=== PATIENT | male | born 1960 | race Caucasian/White ===

== ENCOUNTER 2017-03-02 11:59 | Inpatient (IN) | payer OTHER ==
[2017-03-02 12:25] VITALS: BMI 25.8
--- NOTE | 2017-03-02 14:01 | HP ---
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 JUST RELEASED FROM LONG TERM A MONTH AND HALF AGO AFTER 8 YEARS. Exam Limitations: No Limitations - Ebola screening Have you traveled outside of the country in the last 21 days: No Have you had contact with anyone from an Ebola affected area: No Have you been sick,other than usual withdrawal symptoms: No Do you have a fever: No - Review of Systems Constitutional: Chills, Loss of Appetite, Night Sweats, Changes in sleep, Unintentional Wgt. Loss EENT: reports: Cataracts (SX DONE ON BOTH EYES), Blurred Vision (WEARS GLASSES FOR READING), Dental Problems (UPPER PLATE) Respiratory: reports: No Symptoms reported Cardiac: reports: Lightheadedness GI: reports: Nausea, Poor Appetite, Poor Fluid Intake, Abdominal cramping : reports: Dysuria, Other (BPH) Musculoskeletal: reports: Back Pain, Joint Pain, Muscle Pain Integumentary: reports: Bruising (ON THIGH--"I BRUISE EASILY DUE TO LOW PLAT COUNT".) Neuro: reports: Headache, Numbness (HX NEUROPATHY), Tingling, Unsteady Gait, Dizziness Endocrine: reports: No Symptoms Reported Hematology: reports: Anemia Psychiatric: reports: Orientated x3, Anxious Other Systems: Reviewed and Negative Patient History - Patient Medical History Hx Anemia: Yes Hx Asthma: No Hx Chronic Obstructive Pulmonary Disease (COPD): No Hx Cardiac Disorders: No Hx Hypertension: Yes (ENALAPRIL 5 MG BID) Hx Hypercholesterolemia: No HX Cerebrovascular Accident: No Hx Seizures: No Hx Diabetes: No Hx Gastrointestinal Disorders: Yes (pepetic ulcer-PRILOSEC) Hx Liver Disease: Yes (LIVER CIRRHOSIS) Hx Genitourinary Disorders: No Hx Sexually Transmitted Disorders: No Hx Renal Disease (ESRD): No Hx Thyroid Disease: No Hx Human Immunodeficiency Virus (HIV): Yes (SINCE 1989) Hx Hepatitis C: Yes (TREATED WITH HARVONI X 6 MONTHS) Hx Depression: Yes Hx Suicide Attempt: No Hx Schizophrenia: No - Patient Surgical History Past Surgical History: Yes Hx Neurologic Surgery: No Hx Cataract Extraction: No Hx Cardiac Surgery: No Hx Lung Surgery: No Hx Breast Surgery: No Hx Breast Biopsy: No Hx Abdominal Surgery: No Hx Appendectomy: No Hx Genitourinary Surgery: No Hx Section: No Hx Orthopedic Surgery: Yes (left thigh in 1975) Other Surgical History: fx, left jaw in 2002/left orbit in 2009 Anesthesia Reaction: No - PPD History Previous Implant?: Yes (HX PPD+) Documented Results: Positive w/o proof Implanted On Prior R Admission?: No Results: CXR TBD PPD to be Administered?: No - Reproductive History Patient is a Female of Child Bearing Age (11 -55 yrs old): No (MALE) Patient : (N/A) - Smoking Cessation Smoking history: Current every day smoker Have you smoked in the past 12 months: Yes Aproximately how many cigarettes per day: 10 Hx Chewing Tobacco Use: No Initiated information on smoking cessation: Yes 'Breaking Loose' booklet given: 03/02/17 - Substance & Tx. History Hx Alcohol Use: No Hx Substance Use: Yes (XANAX) Substance Use Type: Tranquilizers (TOXICOLOGY (-)) Hx Substance Use Treatment: Yes (MMTP) - Substances Abused Xanax Route: Oral Frequency: 1-2 times per week Amount used: 2 mg. Age of first use: 56 Date of Last Use: 02/27/17 Family Disease History - Family Disease History Family Disease History: Heart Disease: Grandparent ([id number]; GM- CANCER), CA: Grandparent, Respiratory: Grandparent, Other: Father (-IN [place]), Mother (SUICIDE) Admission Physical Exam [facility] - Vital Signs Vital Signs: Vital Signs - 24 hr 03/02/17 12:23 Temperature 97.9 F Pulse Rate 74 Respiratory 18 Rate Blood Pressure 115/72 - Physical General Appearance: Yes: No Apparent Distress, Anxious HEENTM: Yes: EOMI, Normocephalic, ENID, Pharynx Normal Respiratory: Yes: Chest Non-Tender, Lungs Clear, Normal Breath Sounds, No Respiratory Distress Neck: Yes: Supple, Trachea in good position Breast: Yes: Breast Exam Deferred Cardiology: Yes: Regular Rhythm, Regular Rate, S1, S2 Abdominal: Yes: Normal Bowel Sounds, Non Tender, Soft Genitourinary: Yes: Other (N/A) Back: Yes: Within Normal Limits Musculoskeletal: Yes: full range of Motion, Gait Steady Extremities: Yes: Normal Range of Motion, Non-Tender Neurological: Yes: property valuer II-XII NML intact, Fully Oriented, Alert, Motor Strength 5/5 Integumentary: Yes: Dry, Warm Lymphatic: Yes: Within Normal Limits - Diagnostic (1) Methadone maintenance therapy patient Current Visit: Yes Status: Chronic (2) HIV (human immunodeficiency virus infection) Current Visit: Yes Status: Chronic (3) History of cirrhosis of liver Current Visit: Yes Status: Chronic (4) History of hepatitis C Current Visit: Yes Status: Chronic Cleared for Admission [facility] - Detox or Rehab Claeared for Rehab Admission: Yes [facility] Breath Alcohol Content Breath Alcohol Content: 0 Urine Drug Screen - Results Drug Screen Negative: No Urine Drug Screen Results: MTD-Methadone
[2017-03-02] MEDS ORDERED: hydrOXYzine PAMOATE 25 MG CAPSULE (FP) PO PRN ×2 (14:39→14:48)
[2017-03-02] MEDS ORDERED: guaiFENesin/D-METHORPHAN HB 10 ML UNIT-DOSE CUPS PO PRN (14:39)
[2017-03-02] MEDS ORDERED: ACETAMINOPHEN 325 MG TABLET (FP) PO PRN (14:39)
[2017-03-02] MEDS ORDERED: MAGNESIUM HYDROX 2400MG/30ML ORAL SUSPENSION 30 ML CUP PO PRN (14:39)
[2017-03-02] MEDS ORDERED: LOPERAMIDE HCL 2 MG CAPSULE PO PRN (14:39)
[2017-03-02] MEDS ORDERED: MAGNESIUM CITRATE 300 ML BOTTLE PO PRN (14:39)
[2017-03-02] MEDS ORDERED: MENTHOL/PHENOL 1 EACH UD MM PRN (14:39)
[2017-03-02] MEDS ORDERED: P-EPHED 60MG/TRIPROLIDI 2.5MG TABLET PO PRN (14:39)
[2017-03-02] MEDS ORDERED: IBUPROFEN 400 MG TABLET (FP) PO PRN (14:39)
[2017-03-02] MEDS ORDERED: MAG HYDROX/AL HYDROX/SIMETH 30 ML UNIT-DOSE CUP PO PRN (14:39)
[2017-03-02] MEDS ORDERED: NICOTINE POLACRILEX 2 MG GUM BC PRN (14:39)
[2017-03-02 18:10] LABS: MCH 32.2 pg (25.7-33.7); MEAN CELL VOLUME 92.2 fl (80-96); RDW 14.2 % (11.9-15.9); WHITE BLOOD COUNT 4.3 K/mm3 (4.0-10.0)
[2017-03-02 18:22] LABS: ALBUMIN 4.3 g/dl (3.4-5.0); ANION GAP 9 (8-16); CALCIUM 8.8 mg/dL (8.5-10.1); CO2 29 mmol/L (21-32); GLUCOSE,RANDOM 90 mg/dL (74-106); SGOT/AST 21 U/L (15-37); SGPT/ALT 24 U/L (12-78)
[2017-03-02 18:24] LABS: ALK PHOS 74 U/L (45-117); TOT PROT 7.7 g/dl (6.4-8.2)
[2017-03-02 20:01] LABS: MEAN PLT VOLUME 10.9 fl (7.5-11.1); PLATELET COMMENT2 NO CLUMPING NOTED; PLATELET COMMENT3 NO CLOTTING DETECTED; PLATELET COUNT 62 K/MM3 (134-434); PLATELET ESTIMATE MOD DECREASED (NORMAL)
[2017-03-02] MEDS: THIAMINE HCL 100 MG TABLET (FP) PO SCH (21:55)
[2017-03-02] MEDS: ENALAPRIL MALEATE 5 MG TABLET (FP) PO SCH (21:56)
[2017-03-02] MEDS: GABAPENTIN 300 MG CAPSULE (FP) PO SCH (21:57)
[2017-03-02] MEDS: MIRTAZAPINE 15 MG TABLET (FP) PO SCH (21:57)
[2017-03-02] MEDS ORDERED: MIRTAZAPINE 15 MG TABLET (FP) PO SCH (22:00)
[2017-03-03] MEDS ORDERED: METHADONE HCL 40 MG DISPERSABLE TABLET ONE (04:19)
[2017-03-03] MEDS ORDERED: METHADONE HCL 10 MG TABLET ONE (04:19)
[2017-03-03] MEDS: METHADONE 40 MG, METHADONE 20 MG PO SCH (06:08)
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
[2017-03-03 09:36] LABS: URINE APPEARANCE CLEAR; URINE BILIRUBIN NEGATIVE (NEGATIVE); URINE BLOOD NEGATIVE (NEGATIVE); URINE COLOR LTYELLOW; URINE GLUCOSE (UA) NEGATIVE (NEGATIVE); URINE KETONE NEGATIVE (NEGATIVE); URINE LEUK ESTERASE NEGATIVE (NEGATIVE); URINE NITRITE NEGATIVE (NEGATIVE); URINE PROTEIN NEGATIVE (NEGATIVE); URINE UROBILINOGEN NEGATIVE mg/dL (0.2-1.0)
--- NOTE | 2017-03-03 09:37 | EKG ---
Test Reason : Blood Pressure : / mmHG Vent. Rate : 067 BPM Atrial Rate : 067 BPM P-R Int : 120 ms QRS Dur : 094 ms QT Int : 414 ms P-R-T Axes : 016 024 018 degrees QTc Int : 437 ms NORMAL SINUS RHYTHM NORMAL ECG NO PREVIOUS ECGS AVAILABLE Confirmed by CARMITA MADDOX, WON ([id number]) on 03/03/2017 9:37:34 AM Referred By: Confirmed By:WON VIZCARRA MD
[2017-03-03] MEDS ORDERED: NICOTINE 14 MG/24 HOURS TOPICAL PATCH TD SCH ×2 (10:00→13:35)
[2017-03-03] MEDS ORDERED: METHADONE HCL 10 MG TABLET PO SCH (10:00)
[2017-03-03] MEDS: ENALAPRIL MALEATE 5 MG TABLET (FP) PO SCH ×2 (10:03→21:05)
[2017-03-03] MEDS: GABAPENTIN 300 MG CAPSULE (FP) PO SCH (10:03)
[2017-03-03] MEDS: PRENATAL VITAMINS W/ FOLIC ACID TABLET (FP) PO SCH (10:03)
[2017-03-03] MEDS: PATIENT'S OWN MEDICATION (NON-FORMULARY) (Omeprazole 20 MG) PO SCH ×2 (10:04→10:43)
[2017-03-03] MEDS ORDERED: NICOTINE POLACRILEX 2 MG GUM BC PRN (13:36)
[2017-03-03] MEDS ORDERED: NICOTINE POLACRILEX 2 MG GUM BUC PRN (13:40)
[2017-03-03] MEDS: TOLNAFTATE 1% CREAM 15 GM TUBE TP SCH ×2 (16:04→21:06)
[2017-03-03] MEDS: GABAPENTIN 400 MG CAPSULE (FP) PO SCH ×2 (16:27→21:57)
[2017-03-03] MEDS: NICOTINE 14 MG/24 HOURS TOPICAL PATCH TD SCH (16:28)
[2017-03-03] MEDS: MIRTAZAPINE 15 MG TABLET (FP) PO SCH (21:04)
[2017-03-03] MEDS: THIAMINE HCL 100 MG TABLET (FP) PO SCH (21:06)
[2017-03-04] MEDS ORDERED: METHADONE HCL 10 MG TABLET ONE (04:01)
[2017-03-04] MEDS ORDERED: METHADONE HCL 40 MG DISPERSABLE TABLET ONE (04:01)
[2017-03-04] MEDS: GABAPENTIN 400 MG CAPSULE (FP) PO SCH ×3 (06:11→21:15)
[2017-03-04] MEDS: METHADONE 40 MG, METHADONE 20 MG PO SCH (06:11)
[2017-03-04] MEDS: ENALAPRIL MALEATE 5 MG TABLET (FP) PO SCH ×2 (10:24→21:15)
[2017-03-04] MEDS: PRENATAL VITAMINS W/ FOLIC ACID TABLET (FP) PO SCH (10:24)
[2017-03-04] MEDS: NICOTINE 14 MG/24 HOURS TOPICAL PATCH TD SCH (10:25)
[2017-03-04] MEDS: PATIENT'S OWN MEDICATION (NON-FORMULARY) (Omeprazole 20 MG) PO SCH (10:26)
[2017-03-04] MEDS: TOLNAFTATE 1% CREAM 15 GM TUBE TP SCH ×2 (10:26→21:17)
[2017-03-04] MEDS: THIAMINE HCL 100 MG TABLET (FP) PO SCH (21:14)
[2017-03-04] MEDS: MIRTAZAPINE 15 MG TABLET (FP) PO SCH (21:16)
[2017-03-05] MEDS ORDERED: METHADONE HCL 10 MG TABLET ONE (04:31)
[2017-03-05] MEDS ORDERED: METHADONE HCL 40 MG DISPERSABLE TABLET ONE (04:31)
[2017-03-05] MEDS: GABAPENTIN 400 MG CAPSULE (FP) PO SCH ×3 (06:10→21:30)
[2017-03-05] MEDS: METHADONE 40 MG, METHADONE 20 MG PO SCH (06:10)
[2017-03-05] MEDS ORDERED: PT OWN MED DRAWER 7, Y5N ONE ×3 (09:07→22:16)
[2017-03-05] MEDS: ENALAPRIL MALEATE 5 MG TABLET (FP) PO SCH ×2 (10:20→21:30)
[2017-03-05] MEDS: PRENATAL VITAMINS W/ FOLIC ACID TABLET (FP) PO SCH (10:20)
[2017-03-05] MEDS: NICOTINE 14 MG/24 HOURS TOPICAL PATCH TD SCH (10:20)
[2017-03-05] MEDS: PATIENT'S OWN MEDICATION (NON-FORMULARY) (Omeprazole 20 MG) PO SCH (10:21)
[2017-03-05] MEDS: TOLNAFTATE 1% CREAM 15 GM TUBE TP SCH ×2 (10:21→21:32)
[2017-03-05] MEDS: THIAMINE HCL 100 MG TABLET (FP) PO SCH (21:30)
[2017-03-05] MEDS: MIRTAZAPINE 15 MG TABLET (FP) PO SCH (21:30)
[2017-03-06] MEDS: GABAPENTIN 400 MG CAPSULE (FP) PO SCH ×3 (06:12→21:46)
[2017-03-06] MEDS ORDERED: METHADONE HCL 10 MG TABLET ONE (09:23)
[2017-03-06] MEDS ORDERED: METHADONE HCL 40 MG DISPERSABLE TABLET ONE (09:24)
[2017-03-06] MEDS ORDERED: PT OWN MED DRAWER 7, Y5N ONE ×2 (09:25→10:23)
[2017-03-06] MEDS: PRENATAL VITAMINS W/ FOLIC ACID TABLET (FP) PO SCH (10:21)
[2017-03-06] MEDS: ENALAPRIL MALEATE 5 MG TABLET (FP) PO SCH ×2 (10:21→21:47)
[2017-03-06] MEDS: METHADONE 40 MG, METHADONE 20 MG PO SCH (10:21)
[2017-03-06] MEDS: PATIENT'S OWN MEDICATION (NON-FORMULARY) (Omeprazole 20 MG) PO SCH (10:24)
[2017-03-06] MEDS: NICOTINE 14 MG/24 HOURS TOPICAL PATCH TD SCH (10:25)
[2017-03-06] MEDS: TOLNAFTATE 1% CREAM 15 GM TUBE TP SCH ×2 (10:48→21:45)
[2017-03-06] MEDS: THIAMINE HCL 100 MG TABLET (FP) PO SCH (21:46)
[2017-03-06] MEDS: diphenhydrAMINE HCL 50 MG CAPSULE PO PRN (21:47)
[2017-03-06] MEDS: MIRTAZAPINE 15 MG TABLET (FP) PO SCH (22:07)
[2017-03-07] MEDS: GABAPENTIN 400 MG CAPSULE (FP) PO SCH ×3 (06:15→21:10)
[2017-03-07] MEDS ORDERED: METHADONE HCL 40 MG DISPERSABLE TABLET ONE (08:52)
[2017-03-07] MEDS ORDERED: METHADONE HCL 10 MG TABLET ONE (08:52)
[2017-03-07] MEDS ORDERED: PT OWN MED DRAWER 7, Y5N ONE (08:53)
[2017-03-07] MEDS: ENALAPRIL MALEATE 5 MG TABLET (FP) PO SCH ×2 (10:18→21:12)
[2017-03-07] MEDS: PRENATAL VITAMINS W/ FOLIC ACID TABLET (FP) PO SCH (10:18)
[2017-03-07] MEDS: METHADONE 40 MG, METHADONE 20 MG PO SCH (10:18)
[2017-03-07] MEDS: NICOTINE 14 MG/24 HOURS TOPICAL PATCH TD SCH (10:19)
[2017-03-07] MEDS: PATIENT'S OWN MEDICATION (NON-FORMULARY) (Omeprazole 20 MG) PO SCH (10:19)
[2017-03-07] MEDS: TOLNAFTATE 1% CREAM 15 GM TUBE TP SCH ×2 (10:19→21:12)
[2017-03-07] MEDS: diphenhydrAMINE HCL 50 MG CAPSULE PO PRN (21:10)
[2017-03-07] MEDS: THIAMINE HCL 100 MG TABLET (FP) PO SCH (21:10)
[2017-03-07] MEDS: MIRTAZAPINE 15 MG TABLET (FP) PO SCH (21:10)
[2017-03-08] MEDS: GABAPENTIN 400 MG CAPSULE (FP) PO SCH ×3 (06:27→21:24)
[2017-03-08] MEDS ORDERED: METHADONE HCL 10 MG TABLET ONE (08:56)
[2017-03-08] MEDS ORDERED: PT OWN MED DRAWER 7, Y5N ONE ×2 (08:57→20:50)
[2017-03-08] MEDS ORDERED: METHADONE HCL 40 MG DISPERSABLE TABLET ONE (08:57)
[2017-03-08] MEDS: METHADONE 40 MG, METHADONE 20 MG PO SCH (10:21)
[2017-03-08] MEDS: PATIENT'S OWN MEDICATION (NON-FORMULARY) (Omeprazole 20 MG) PO SCH (10:21)
[2017-03-08] MEDS: NICOTINE 14 MG/24 HOURS TOPICAL PATCH TD SCH (10:21)
[2017-03-08] MEDS: TOLNAFTATE 1% CREAM 15 GM TUBE TP SCH ×2 (10:21→21:23)
[2017-03-08] MEDS: PRENATAL VITAMINS W/ FOLIC ACID TABLET (FP) PO SCH (10:21)
[2017-03-08] MEDS: ENALAPRIL MALEATE 5 MG TABLET (FP) PO SCH ×2 (10:23→21:24)
[2017-03-08] MEDS: THIAMINE HCL 100 MG TABLET (FP) PO SCH (21:23)
[2017-03-08] MEDS: MIRTAZAPINE 15 MG TABLET (FP) PO SCH (21:23)
[2017-03-09] MEDS: GABAPENTIN 400 MG CAPSULE (FP) PO SCH ×3 (06:21→21:12)
[2017-03-09] MEDS ORDERED: METHADONE HCL 10 MG TABLET ONE (09:23)
[2017-03-09] MEDS ORDERED: METHADONE HCL 40 MG DISPERSABLE TABLET ONE (09:24)
[2017-03-09] MEDS: ENALAPRIL MALEATE 5 MG TABLET (FP) PO SCH ×2 (10:08→22:41)
[2017-03-09] MEDS: PRENATAL VITAMINS W/ FOLIC ACID TABLET (FP) PO SCH (10:08)
[2017-03-09] MEDS: METHADONE 40 MG, METHADONE 20 MG PO SCH (10:08)
[2017-03-09] MEDS: PATIENT'S OWN MEDICATION (NON-FORMULARY) (Omeprazole 20 MG) PO SCH (10:09)
[2017-03-09] MEDS: TOLNAFTATE 1% CREAM 15 GM TUBE TP SCH ×2 (10:10→22:40)
[2017-03-09] MEDS ORDERED: PT OWN MED DRAWER 7, Y5N ONE (10:10)
[2017-03-09] MEDS: NICOTINE 14 MG/24 HOURS TOPICAL PATCH TD SCH (10:12)
[2017-03-09] MEDS ORDERED: ONDANSETRON *ODT* 4 MG TABLET SL PRN (11:29)
[2017-03-09] MEDS ORDERED: ONDANSETRON *ODT* 4 MG TABLET SL ONE (11:42)
--- NOTE | 2017-03-09 12:48 | PN ---
Psychiatric Progress Note Vital Signs: Vital Signs Period Temp Pulse Resp BP Sys/Soto Pulse Ox Last 24 Hr 98.4 F 64-74 16-20 111-131/72-77 Date of Session: 03/09/17 Chief Complaint:: Insomnia HPI: Patient addressing Sedative Dependence comorid with Opoid Dependence on Agonist Therapy, Nicotine Dependence and Depressive Disorder ROS: HIV+, Cirrhosis of the liver, Hep C Current Medications: Active Medications Generic Name Dose Route Start Last Admin Trade Name Freq PRN Reason Stop Dose Admin Acetaminophen 650 mg 03/02/17 14:39 Tylenol - PO Q4H PRN PAIN Al Hydroxide/Mg Hydroxide 30 ml 03/02/17 14:39 Mylanta Oral Suspension - PO Q6H PRN DYSPEPSIA Diphenhydramine HCl 50 mg 03/02/17 14:39 03/07/17 21:10 Benadryl - PO 50 mg HSMR1 PRN Administration INSOMNIA Enalapril Maleate 5 mg 03/02/17 22:00 03/09/17 10:08 Vasotec - PO 5 mg BID ARTI Administration Eucalyptus/Menthol/Phenol/Sorbitol 1 each 03/02/17 14:39 Cepastat Lozenge - MM Q4H PRN SORE THROAT Gabapentin 800 mg 03/03/17 14:33 03/09/17 06:21 Neurontin - PO 800 mg TID ARTI Administration Guaifenesin 10 ml 03/02/17 14:39 Robitussin Dm - PO Q6H PRN COUGH Loperamide HCl 4 mg 03/02/17 14:39 Imodium - PO Q6H PRN DIARRHEA Magnesium Citrate 300 ml 03/02/17 14:39 Citroma - PO Q48H PRN CONSTIPATION Magnesium Hydroxide 30 ml 03/02/17 14:39 Milk Of Magnesia - PO DAILY PRN CONSTIPATION Methadone HCl 40 mg/ Methadone 60 mg 03/06/17 10:00 03/09/17 10:08 HCl 20 mg PO 03/12/17 09:59 60 mg DAILY ARTI Administration Mirtazapine 45 mg 03/02/17 22:00 03/08/17 21:23 Remeron - PO 45 mg HS ARTI Administration Nicotine 14 mg 03/03/17 14:33 03/09/17 10:12 Nicoderm Patch - TD 14 mg DAILY ARTI Administration Nicotine Polacrilex 2 mg 03/03/17 13:40 Nicorette Gum - BUC Q2H PRN NICOTINE REPLACEMENT RX Non-Formulary Medication 1 each 03/03/17 10:00 03/09/17 10:10 Elviteg/Janice/Emtric/Tenofo Ala [Genvoya Tablet] PO 1 each DAILY ARTI Administration Non-Formulary Medication 20 mg 03/02/17 14:30 03/09/17 10:09 Omeprazole PO Not Given DAILY ARTI Ondansetron HCl 8 mg 03/09/17 11:29 Zofran Odt - SL Q8H PRN NAUSEA Multivit/Folic Acid/Iron 1 tab 03/03/17 10:00 03/09/17 10:08 Vitamins (Sjr) - PO 1 tab DAILY ARTI Administration Pseudoephedrine/Triprolidine 1 combo 03/02/17 14:39 Actifed - PO TID PRN NASAL CONGESTION Thiamine HCl 100 mg 03/02/17 22:00 03/08/17 21:23 Vitamin B1 - PO 100 mg HS ARTI Administration Tolnaftate 1 applic 03/03/17 14:34 03/09/17 10:10 Tinactin 1% Cream - TP 1 applic BID ARTI Administration Current Side Effect: No Lab tests ordered: Yes Lab tests reviewed: Yes Provider note:: Patient reports experiencing difficulty to sleep. 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 Requests to be order additional medication for sleep. Hypnotic properties and adverse- effects of Belsonra discussed with patient and he agreed to try it Total face to face time:: 25 Mental Status Exam - Mental Status Exam Alert and Oriented to: Time, Person Cognitive Function: Fair Patient Appearance: Well Groomed Mood: Hopeful, Euthymic Affect: Appropriate Patient Behavior: Cooperative Speech Pattern: Clear Voice Loudness: Normal Thought Process: Intact, Goal Oriented Thought Disorder: Not Present Hallucinations: Denies Suicidal Ideation: Denies Homicidal Ideation: Denies Insight/Judgement: Fair Sleep: Poorly Appetite: Good Muscle strength/Tone: Normal Gait/Station: Normal Psychiatric Treatment Plan - Problem List (1) Sedative hypnotic or anxiolytic dependence Current Visit: Yes (2) Opioid dependence on agonist therapy Current Visit: Yes (3) Nicotine dependence Current Visit: Yes (4) Depressive disorder Current Visit: Yes (5) Substance induced mood disorder Current Visit: Yes (6) MDD (major depressive disorder), single episode Current Visit: Yes (7) HIV (human immunodeficiency virus infection) Current Visit: Yes (8) History of cirrhosis of liver Current Visit: Yes (9) History of hepatitis C Current Visit: Yes Initial treatment plan: 1) Start Belsomra 10 mg po HS prn for insomnia. 2) Monitor progress
[2017-03-09] MEDS: MIRTAZAPINE 15 MG TABLET (FP) PO SCH (21:12)
[2017-03-09] MEDS: THIAMINE HCL 100 MG TABLET (FP) PO SCH (21:12)
[2017-03-09] MEDS: SUVOREXANT 10 MG TABLET PO PRN (21:14)
[2017-03-10] MEDS: GABAPENTIN 400 MG CAPSULE (FP) PO SCH ×3 (06:00→21:15)
[2017-03-10] MEDS ORDERED: METHADONE HCL 40 MG DISPERSABLE TABLET ONE (09:13)
[2017-03-10] MEDS ORDERED: METHADONE HCL 10 MG TABLET ONE (09:13)
[2017-03-10] MEDS: TOLNAFTATE 1% CREAM 15 GM TUBE TP SCH ×2 (10:19→21:16)
[2017-03-10] MEDS: ENALAPRIL MALEATE 5 MG TABLET (FP) PO SCH ×2 (10:20→21:16)
[2017-03-10] MEDS: METHADONE 40 MG, METHADONE 20 MG PO SCH (10:20)
[2017-03-10] MEDS: NICOTINE 14 MG/24 HOURS TOPICAL PATCH TD SCH (10:21)
[2017-03-10] MEDS: PATIENT'S OWN MEDICATION (NON-FORMULARY) (Omeprazole 20 MG) PO SCH (10:22)
[2017-03-10] MEDS: PRENATAL VITAMINS W/ FOLIC ACID TABLET (FP) PO SCH (10:22)
[2017-03-10] MEDS: THIAMINE HCL 100 MG TABLET (FP) PO SCH (21:14)
[2017-03-10] MEDS: SUVOREXANT 10 MG TABLET PO PRN (21:14)
[2017-03-10] MEDS: MIRTAZAPINE 15 MG TABLET (FP) PO SCH (21:15)
[2017-03-11] MEDS: GABAPENTIN 400 MG CAPSULE (FP) PO SCH ×3 (06:03→21:11)
[2017-03-11] MEDS ORDERED: METHADONE HCL 40 MG DISPERSABLE TABLET ONE (09:00)
[2017-03-11] MEDS ORDERED: PT OWN MED DRAWER 7, Y5N ONE (09:00)
[2017-03-11] MEDS ORDERED: METHADONE HCL 10 MG TABLET ONE (09:00)
[2017-03-11] MEDS: NICOTINE 14 MG/24 HOURS TOPICAL PATCH TD SCH (09:50)
[2017-03-11] MEDS: METHADONE 40 MG, METHADONE 20 MG PO SCH (09:50)
[2017-03-11] MEDS: TOLNAFTATE 1% CREAM 15 GM TUBE TP SCH ×2 (09:50→21:12)
[2017-03-11] MEDS: PRENATAL VITAMINS W/ FOLIC ACID TABLET (FP) PO SCH (09:50)
[2017-03-11] MEDS: PATIENT'S OWN MEDICATION (NON-FORMULARY) (Omeprazole 20 MG) PO SCH (09:51)
[2017-03-11] MEDS: ENALAPRIL MALEATE 5 MG TABLET (FP) PO SCH ×2 (11:00→21:11)
[2017-03-11] MEDS: THIAMINE HCL 100 MG TABLET (FP) PO SCH (21:11)
[2017-03-11] MEDS: MIRTAZAPINE 15 MG TABLET (FP) PO SCH (21:11)
[2017-03-11] MEDS: SUVOREXANT 10 MG TABLET PO PRN (21:12)
[2017-03-12] MEDS: GABAPENTIN 400 MG CAPSULE (FP) PO SCH ×3 (06:00→21:19)
[2017-03-12] MEDS ORDERED: METHADONE HCL 40 MG DISPERSABLE TABLET ONE (08:58)
[2017-03-12] MEDS ORDERED: METHADONE HCL 10 MG TABLET ONE (08:58)
[2017-03-12] MEDS: PRENATAL VITAMINS W/ FOLIC ACID TABLET (FP) PO SCH (10:07)
[2017-03-12] MEDS: ENALAPRIL MALEATE 5 MG TABLET (FP) PO SCH ×2 (10:07→21:19)
[2017-03-12] MEDS: NICOTINE 14 MG/24 HOURS TOPICAL PATCH TD SCH (10:07)
[2017-03-12] MEDS: METHADONE 40 MG, METHADONE 20 MG PO SCH (10:07)
[2017-03-12] MEDS: TOLNAFTATE 1% CREAM 15 GM TUBE TP SCH ×2 (10:09→22:20)
[2017-03-12] MEDS: PATIENT'S OWN MEDICATION (NON-FORMULARY) (Omeprazole 20 MG) PO SCH (10:10)
[2017-03-12] MEDS: THIAMINE HCL 100 MG TABLET (FP) PO SCH (21:19)
[2017-03-12] MEDS: MIRTAZAPINE 15 MG TABLET (FP) PO SCH (21:19)
[2017-03-12] MEDS: SUVOREXANT 10 MG TABLET PO PRN (21:21)
[2017-03-13] MEDS: GABAPENTIN 400 MG CAPSULE (FP) PO SCH ×3 (06:15→21:48)
[2017-03-13] MEDS ORDERED: METHADONE HCL 10 MG TABLET ONE (08:40)
[2017-03-13] MEDS ORDERED: METHADONE HCL 40 MG DISPERSABLE TABLET ONE (08:41)
[2017-03-13] MEDS: PRENATAL VITAMINS W/ FOLIC ACID TABLET (FP) PO SCH (10:07)
[2017-03-13] MEDS: PATIENT'S OWN MEDICATION (NON-FORMULARY) (Omeprazole 20 MG) PO SCH (10:07)
[2017-03-13] MEDS: TOLNAFTATE 1% CREAM 15 GM TUBE TP SCH ×2 (10:07→22:52)
[2017-03-13] MEDS: ENALAPRIL MALEATE 5 MG TABLET (FP) PO SCH ×2 (10:07→21:48)
[2017-03-13] MEDS: METHADONE 40 MG, METHADONE 20 MG PO SCH (10:08)
[2017-03-13] MEDS: NICOTINE 14 MG/24 HOURS TOPICAL PATCH TD SCH (11:13)
[2017-03-13] MEDS: THIAMINE HCL 100 MG TABLET (FP) PO SCH (21:47)
[2017-03-13] MEDS: MIRTAZAPINE 15 MG TABLET (FP) PO SCH (21:48)
[2017-03-14] MEDS: GABAPENTIN 400 MG CAPSULE (FP) PO SCH ×3 (06:19→21:14)
[2017-03-14] MEDS ORDERED: METHADONE HCL 10 MG TABLET ONE (08:46)
[2017-03-14] MEDS ORDERED: METHADONE HCL 40 MG DISPERSABLE TABLET ONE (08:47)
[2017-03-14] MEDS: PATIENT'S OWN MEDICATION (NON-FORMULARY) (Omeprazole 20 MG) PO SCH (10:13)
[2017-03-14] MEDS: ENALAPRIL MALEATE 5 MG TABLET (FP) PO SCH ×2 (10:13→21:14)
[2017-03-14] MEDS: PRENATAL VITAMINS W/ FOLIC ACID TABLET (FP) PO SCH (10:13)
[2017-03-14] MEDS: NICOTINE 14 MG/24 HOURS TOPICAL PATCH TD SCH (10:14)
[2017-03-14] MEDS: METHADONE 40 MG, METHADONE 20 MG PO SCH (10:14)
[2017-03-14] MEDS: TOLNAFTATE 1% CREAM 15 GM TUBE TP SCH ×2 (10:15→21:15)
[2017-03-14] MEDS: MIRTAZAPINE 15 MG TABLET (FP) PO SCH (21:14)
[2017-03-14] MEDS: THIAMINE HCL 100 MG TABLET (FP) PO SCH (21:14)
[2017-03-14] MEDS: SUVOREXANT 10 MG TABLET PO PRN (21:16)
[2017-03-15] MEDS: GABAPENTIN 400 MG CAPSULE (FP) PO SCH ×3 (06:13→21:27)
[2017-03-15] MEDS ORDERED: METHADONE HCL 40 MG DISPERSABLE TABLET ONE (08:51)
[2017-03-15] MEDS ORDERED: METHADONE HCL 10 MG TABLET ONE (08:51)
[2017-03-15] MEDS: METHADONE 40 MG, METHADONE 20 MG PO SCH (10:16)
[2017-03-15] MEDS: ENALAPRIL MALEATE 5 MG TABLET (FP) PO SCH ×2 (10:16→21:27)
[2017-03-15] MEDS: PRENATAL VITAMINS W/ FOLIC ACID TABLET (FP) PO SCH (10:16)
[2017-03-15] MEDS: NICOTINE 14 MG/24 HOURS TOPICAL PATCH TD SCH (10:17)
[2017-03-15] MEDS: PATIENT'S OWN MEDICATION (NON-FORMULARY) (Omeprazole 20 MG) PO SCH (10:17)
[2017-03-15] MEDS: TOLNAFTATE 1% CREAM 15 GM TUBE TP SCH ×2 (10:21→21:26)
[2017-03-15] MEDS: MIRTAZAPINE 15 MG TABLET (FP) PO SCH (21:27)
[2017-03-15] MEDS: SUVOREXANT 10 MG TABLET PO PRN (21:27)
[2017-03-15] MEDS: THIAMINE HCL 100 MG TABLET (FP) PO SCH (21:27)
[2017-03-16] MEDS: GABAPENTIN 400 MG CAPSULE (FP) PO SCH ×3 (06:15→21:30)
[2017-03-16] MEDS ORDERED: METHADONE HCL 10 MG TABLET ONE ×2 (09:05→09:08)
[2017-03-16] MEDS ORDERED: METHADONE HCL 40 MG DISPERSABLE TABLET ONE (09:06)
[2017-03-16] MEDS: PRENATAL VITAMINS W/ FOLIC ACID TABLET (FP) PO SCH (10:02)
[2017-03-16] MEDS: NICOTINE 14 MG/24 HOURS TOPICAL PATCH TD SCH (10:02)
[2017-03-16] MEDS: ENALAPRIL MALEATE 5 MG TABLET (FP) PO SCH ×2 (10:02→21:29)
[2017-03-16] MEDS: METHADONE 40 MG, METHADONE 20 MG PO SCH (10:02)
[2017-03-16] MEDS: PATIENT'S OWN MEDICATION (NON-FORMULARY) (Omeprazole 20 MG) PO SCH (10:04)
[2017-03-16] MEDS: TOLNAFTATE 1% CREAM 15 GM TUBE TP SCH ×2 (10:04→21:32)
[2017-03-16] MEDS: SUVOREXANT 10 MG TABLET PO PRN (21:29)
[2017-03-16] MEDS: MIRTAZAPINE 15 MG TABLET (FP) PO SCH (21:31)
[2017-03-16] MEDS: THIAMINE HCL 100 MG TABLET (FP) PO SCH (21:32)
[2017-03-17] MEDS: GABAPENTIN 400 MG CAPSULE (FP) PO SCH ×3 (06:05→21:31)
[2017-03-17] MEDS: ENALAPRIL MALEATE 5 MG TABLET (FP) PO SCH ×2 (10:35→21:30)
[2017-03-17] MEDS: PRENATAL VITAMINS W/ FOLIC ACID TABLET (FP) PO SCH (10:35)
[2017-03-17] MEDS: TOLNAFTATE 1% CREAM 15 GM TUBE TP SCH ×2 (10:36→21:32)
[2017-03-17] MEDS: NICOTINE 14 MG/24 HOURS TOPICAL PATCH TD SCH (10:36)
[2017-03-17] MEDS: PATIENT'S OWN MEDICATION (NON-FORMULARY) (Omeprazole 20 MG) PO SCH (10:36)
[2017-03-17] MEDS ORDERED: METHADONE HCL 10 MG TABLET ONE (10:38)
[2017-03-17] MEDS ORDERED: METHADONE HCL 40 MG DISPERSABLE TABLET ONE (10:38)
[2017-03-17] MEDS: METHADONE 40 MG, METHADONE 20 MG PO SCH (10:39)
[2017-03-17] MEDS: THIAMINE HCL 100 MG TABLET (FP) PO SCH (21:30)
[2017-03-17] MEDS: MIRTAZAPINE 15 MG TABLET (FP) PO SCH (21:30)
[2017-03-17] MEDS: SUVOREXANT 10 MG TABLET PO PRN (21:31)
[2017-03-18] MEDS ORDERED: METHADONE HCL 40 MG DISPERSABLE TABLET PO SCH (06:00)
[2017-03-18] MEDS ORDERED: METHADONE HCL 40 MG DISPERSABLE TABLET ONE (06:01)
[2017-03-18] MEDS ORDERED: METHADONE HCL 10 MG TABLET ONE (06:01)
[2017-03-18] MEDS: GABAPENTIN 400 MG CAPSULE (FP) PO SCH ×3 (06:28→21:19)
[2017-03-18] MEDS: METHADONE 40 MG, METHADONE 20 MG PO SCH (06:28)
[2017-03-18] MEDS: PRENATAL VITAMINS W/ FOLIC ACID TABLET (FP) PO SCH (09:49)
[2017-03-18] MEDS: ENALAPRIL MALEATE 5 MG TABLET (FP) PO SCH ×2 (09:49→21:19)
[2017-03-18] MEDS: PATIENT'S OWN MEDICATION (NON-FORMULARY) (Omeprazole 20 MG) PO SCH (09:50)
[2017-03-18] MEDS: TOLNAFTATE 1% CREAM 15 GM TUBE TP SCH ×2 (09:50→22:12)
--- NOTE | 2017-03-18 09:50 | PN ---
Psychiatric Progress Note Vital Signs: Vital Signs Period Temp Pulse Resp BP Sys/Soto Pulse Ox Last 24 Hr 98.2 F 70-87 18-18 102-106/60-70 Date of Session: 03/18/17 Chief Complaint:: Discharge Note HPI: Patient addressing Sedative Dependence comorbid with Opoid Dependence, Nicotine Dependence and Depressive Disorder ROS: HIV+, Cirrhosis of the liver, Hep C were medically managed Current Medications: Active Medications Generic Name Dose Route Start Last Admin Trade Name Freq PRN Reason Stop Dose Admin Acetaminophen 650 mg 03/02/17 14:39 Tylenol - PO Q4H PRN PAIN Al Hydroxide/Mg Hydroxide 30 ml 03/02/17 14:39 Mylanta Oral Suspension - PO Q6H PRN DYSPEPSIA Diphenhydramine HCl 50 mg 03/02/17 14:39 03/07/17 21:10 Benadryl - PO 50 mg HSMR1 PRN Administration INSOMNIA Enalapril Maleate 5 mg 03/02/17 22:00 03/17/17 21:30 Vasotec - PO 5 mg BID ARTI Administration Eucalyptus/Menthol/Phenol/Sorbitol 1 each 03/02/17 14:39 Cepastat Lozenge - MM Q4H PRN SORE THROAT Gabapentin 800 mg 03/03/17 14:33 03/18/17 06:28 Neurontin - PO 800 mg TID ARTI Administration Guaifenesin 10 ml 03/02/17 14:39 Robitussin Dm - PO Q6H PRN COUGH Loperamide HCl 4 mg 03/02/17 14:39 Imodium - PO Q6H PRN DIARRHEA Magnesium Citrate 300 ml 03/02/17 14:39 Citroma - PO Q48H PRN CONSTIPATION Magnesium Hydroxide 30 ml 03/02/17 14:39 Milk Of Magnesia - PO DAILY PRN CONSTIPATION Methadone HCl 40 mg/ Methadone 60 mg 03/18/17 06:00 03/18/17 06:28 HCl 20 mg PO 03/24/17 05:59 60 mg DAILY@0600 ARTI Administration Mirtazapine 45 mg 03/02/17 22:00 03/17/17 21:30 Remeron - PO 45 mg HS ARTI Administration Nicotine 14 mg 03/03/17 14:33 03/17/17 10:36 Nicoderm Patch - TD 14 mg DAILY ARTI Administration Nicotine Polacrilex 2 mg 03/03/17 13:40 Nicorette Gum - BUC Q2H PRN NICOTINE REPLACEMENT RX Non-Formulary Medication 1 each 03/03/17 10:00 03/17/17 10:35 Elviteg/Janice/Emtric/Tenofo Ala [Genvoya Tablet] PO 1 each DAILY ARTI Administration Non-Formulary Medication 20 mg 03/02/17 14:30 03/17/17 10:36 Omeprazole PO Not Given DAILY ARTI Ondansetron HCl 8 mg 03/09/17 11:29 Zofran Odt - SL Q8H PRN NAUSEA Multivit/Folic Acid/Iron 1 tab 03/03/17 10:00 03/17/17 10:35 Vitamins (Sjr) - PO 1 tab DAILY ARTI Administration Pseudoephedrine/Triprolidine 1 combo 03/02/17 14:39 Actifed - PO TID PRN NASAL CONGESTION Thiamine HCl 100 mg 03/02/17 22:00 03/17/17 21:30 Vitamin B1 - PO 100 mg HS ARTI Administration Tolnaftate 1 applic 03/03/17 14:34 03/17/17 21:32 Tinactin 1% Cream - TP 1 applic BID ARTI Administration Current Side Effect: No Lab tests ordered: Yes Lab tests reviewed: Yes Provider note:: Patient will complete this program on 03/19/17. He has met his treatment goals and will continue to address his issues in outpatient program at [facility] at [address] [place] [id number]. He verbalized understanding of the consequences of his addiction and from his participation in this program, he has learned to identify his triggers and has acquired the tools necessary to better able handling them.He responded well to Remeron 45 mg po HS and Belsomra 10 mg po HS. Script for 30 days supply of Remeron will be electronically transmitted to [facility] at [address] [place] [id number]. He is stable for discharge on 03/19/17 Total face to face time:: 35 Mental Status Exam - Mental Status Exam Alert and Oriented to: Time, Place, Person Cognitive Function: Fair Patient Appearance: Well Groomed Mood: Hopeful, Euthymic Affect: Appropriate Patient Behavior: Cooperative Speech Pattern: Clear Voice Loudness: Normal Thought Process: Intact, Goal Oriented Thought Disorder: Not Present Hallucinations: Denies Suicidal Ideation: Denies Homicidal Ideation: Denies Insight/Judgement: Fair Sleep: Fair Appetite: Good Muscle strength/Tone: Normal Gait/Station: Normal Psychiatric Treatment Plan - Problem List (1) Sedative hypnotic or anxiolytic dependence Current Visit: Yes (2) Opioid dependence on agonist therapy Current Visit: Yes (3) Nicotine dependence Current Visit: Yes (4) Depressive disorder Current Visit: Yes (5) Substance induced mood disorder Current Visit: Yes (6) MDD (major depressive disorder), single episode Current Visit: Yes (7) HIV (human immunodeficiency virus infection) Current Visit: Yes (8) History of cirrhosis of liver Current Visit: Yes (9) History of hepatitis C Current Visit: Yes Initial treatment plan: Patient will be discharged tomorrow and referred to [facility] for outpatient treatment
[2017-03-18] MEDS: NICOTINE 14 MG/24 HOURS TOPICAL PATCH TD SCH (09:53)
[2017-03-18] MEDS: THIAMINE HCL 100 MG TABLET (FP) PO SCH (21:19)
[2017-03-18] MEDS: MIRTAZAPINE 15 MG TABLET (FP) PO SCH (21:20)
[2017-03-18] MEDS: SUVOREXANT 10 MG TABLET PO PRN (21:25)
[2017-03-19] MEDS ORDERED: METHADONE HCL 40 MG DISPERSABLE TABLET ONE (03:08)
[2017-03-19] MEDS ORDERED: METHADONE HCL 10 MG TABLET ONE (03:08)
[2017-03-19] MEDS: GABAPENTIN 400 MG CAPSULE (FP) PO SCH (06:03)
[2017-03-19] MEDS: METHADONE 40 MG, METHADONE 20 MG PO SCH (06:04)
[2017-03-19 06:40] VITALS: BP 94/74; PULSE 84; TEMP 97.8
[2017-03-19] MEDS ORDERED: PT OWN MED DRAWER 7, Y5N ONE (06:50)
== END 2017-03-19 07:15 | disposition home or self-care (01) | DRG 772 ==
LOC: YASAS 11:59 → Y3W 17:30
PROVIDERS: ADMIT Psychiatry & Neurology Psychiatry; ATTEND Psychiatry & Neurology Psychiatry
PROC: HZ42ZZZ Group Counseling for Substance Abuse Treatment, Cognitive-Behavioral (ICD-10-PCS; principal; 2017-03-02)
DX: F11.20 Opioid dependence, uncomplicated (principal); F13.20 Sedative, hypnotic or anxiolytic dependence, uncomplicated; F17.210 Nicotine dependence, cigarettes, uncomplicated; F33.9 Major depressive disorder, recurrent, unspecified; F19.24 Other psychoactive substance dependence with psychoactive substance-induced mood disorder; Z21 Asymptomatic human immunodeficiency virus [HIV] infection status; I10 Essential (primary) hypertension; K21.9 Gastro-esophageal reflux disease without esophagitis; R76.11 Nonspecific reaction to tuberculin skin test without active tuberculosis; Z86.19 Personal history of other infectious and parasitic diseases; Z87.19 Personal history of other diseases of the digestive system
CPT/HCPCS: 36415; 71020-TC; 80053; 81003; 85027; 86593; 93005; 93010